=== PATIENT | male | born 1955 | race Caucasian/White ===

== ENCOUNTER 2021-03-30 14:14 | Emergency (ER) | payer MEDICAID ==
[~2021-03-30] VITALS: Ht 175.3 cm; Wt 67.0 kg
[2021-03-30] MEDS ORDERED: ketorolac tromethamine 15mg/ml inj. IM ONE (18:45)
[2021-03-30] MEDS ORDERED: IBUP-1984 PO (18:49)
[2021-03-30 18:59] VITALS: BP 146/88
== END 2021-03-30 19:49 | disposition home or self-care (01) ==
LOC: ER 14:16
DX: M25.562 Pain in left knee (principal)
CPT/HCPCS: 29530; 73564; 82948; 96372; 99283; J1885

== ENCOUNTER 2021-04-14 02:23 | Emergency (ER) | payer MEDICAID ==
[~2021-04-14] VITALS: Ht 170.2 cm; Wt 70.5 kg
[2021-04-14 04:20] VITALS: BP 128/58
== END 2021-04-14 04:22 | disposition home or self-care (01) ==
LOC: ER 02:23
DX: Z02.89 Encounter for other administrative examinations (principal); Z20.822 Contact with and (suspected) exposure to COVID-19; M25.562 Pain in left knee; F17.200 Nicotine dependence, unspecified, uncomplicated; Z98.890 Other specified postprocedural states
CPT/HCPCS: 36415; 99283; U0003; U0005

== ENCOUNTER 2021-08-11 16:54 | Emergency (ER) | payer MEDICAID ==
[~2021-08-11] VITALS: Ht 175.3 cm; Wt 71.5 kg
[2021-08-11 17:20] VITALS: BP 130/73
== END 2021-08-11 19:01 | disposition home or self-care (01) ==
LOC: ER 16:56
DX: S09.92XA Unspecified injury of nose, initial encounter (principal); S00.31XA Abrasion of nose, initial encounter; R42 Dizziness and giddiness; R51.9 Headache, unspecified; R11.0 Nausea; Z98.890 Other specified postprocedural states; Y08.89XA Assault by other specified means, initial encounter; Y93.89 Activity, other specified; Y92.89 Other specified places as the place of occurrence of the external cause; Y99.8 Other external cause status
CPT/HCPCS: 70450; 99284

== ENCOUNTER 2021-09-06 05:35 | Emergency (ER) | payer MEDICAID ==
[~2021-09-06] VITALS: Ht 175.3 cm; Wt 78.2 kg
[2021-09-06 05:54] VITALS: BP 140/87
[2021-09-06] MEDS ORDERED: normal saline 1000ML IV soln IV ONE (06:25)
[2021-09-06 07:30] LABS: CLARITY,URINE CLEAR (Clear); COLOR,URINE YELLOW (Yellow); GLUCOSE, URINE NEGATIVE (Neg); KETONES,URINE NEGATIVE (Neg); LEUKOCYTE ESTERASE ,URINE NEGATIVE (Neg); NITRITES, URINE NEGATIVE (Neg); OCCULT BLOOD,URINE NEGATIVE (Neg); PROTEIN,URINE NEGATIVE (Neg)
[2021-09-06 07:33] LABS: UA COLLECTION TYPE CLN CATCH MIDSTREAM
[2021-09-06 08:29] LABS: ALANINE AMINOTRANSFERASE 187 U/L (12-78); ALBUMIN 3.6 G/DL (3.4-5.0); ALBUMIN/GLOBULIN RATIO 0.7 (1.1-1.5); ALKALINE PHOSPHATASE 107 IU/L (46-116); ANION GAP 8 (8-16); ASPARTATE AMINO TRANSFERASE 219 U/L (10-37); BILIRUBIN,TOTAL 0.5 MG/DL (0.1-1.0); BLOOD UREA NITROGEN 13 MG/DL (7-18); CALCIUM 8.4 MG/DL (8.5-10.1); CHLORIDE 104 MMOL/L (99-107); CREATININE 0.65 MG/DL (0.60-1.10); MAGNESIUM 2.3 MG/DL (1.5-2.4); SODIUM 142 MMOL/L (135-145); TOTAL CARBON DIOXIDE 29.8 MMOL/L (24-32); TOTAL PROTEIN 8.9 G/DL (6.4-8.2); eGFR > 90 ML/MIN
[2021-09-06 08:33] LABS: BASOPHILS # (AUTO) 0.1 X10'3 (0-0.2); BASOPHILS % (AUTO) 1.3 % (0-1); EOSINOPHILS # (AUTO) 0.1 X10'3 (0-0.9); EOSINOPHILS % (AUTO) 1.7 % (0-6); HEMATOCRIT 41.9 % (42.0-52.0); HEMOGLOBIN 14.6 g/dl (14.0-17.9); LYMPHOCYTES % (AUTO) 41.6 % (21-51); MEAN CORPUSCULAR HEMOGLOBIN 37.1 PG (27.0-31.0); MEAN CORPUSCULAR HGB CONC 34.9 g/dL (33.0-36.5); MEAN CORPUSCULAR VOLUME 106.2 FL (78-98); MONOCYTES # (AUTO) 0.8 X10'3 (0-0.9); MONOCYTES % (AUTO) 10.8 % (2-12); NEUTROPHILS # (AUTO) 3.2 X10'3 (1.8-7.7); NEUTROPHILS % (AUTO) 44.6 % (42-75); PLATELET COUNT 204 X10'3 (140-440); RED BLOOD COUNT 3.95 X10'6 (4.70-6.10); RED CELL DISTRIBUTION WIDTH 14.1 % (11.5-14.5); WHITE BLOOD COUNT 7.2 X10'3 (4.5-11.0)
[2021-09-06 08:53] LABS: GLUCOSE 88 MG/DL (70-104)
[2021-09-06] MEDS ORDERED: ONDA4TAB12 PO (10:28)
== END 2021-09-06 10:34 | disposition home or self-care (01) ==
LOC: ER 05:36
DX: B34.9 Viral infection, unspecified (principal); Z20.822 Contact with and (suspected) exposure to COVID-19; R11.2 Nausea with vomiting, unspecified; R19.7 Diarrhea, unspecified; R06.02 Shortness of breath; R50.9 Fever, unspecified; R53.1 Weakness; R42 Dizziness and giddiness; R05.9 Cough, unspecified; Z98.890 Other specified postprocedural states
CPT/HCPCS: 36415; 71045; 80053; 81003; 83605; 83735; 84145; 85025; 87040; 87635; 93005; 99285; C9803

== ENCOUNTER 2022-03-04 03:28 | Emergency (ER) | payer MEDICAID ==
[~2022-03-04] VITALS: Ht 175.3 cm; Wt 73.6 kg
[~2022-03-04 03:28] MED LIST: ONDA4TAB12 PO
[2022-03-04 03:32] VITALS: BP 120/72
[2022-03-04] MEDS ORDERED: ketorolac trometh inj. 60 MG/2 ML VIAL IM ONE (05:05)
[2022-03-04] MEDS ORDERED: ACET650T48 PO (05:11)
[2022-03-04] MEDS ORDERED: IBUP-1985 PO (05:11)
== END 2022-03-04 05:47 | disposition home or self-care (01) ==
LOC: ER 03:29
DX: S89.91XA Unspecified injury of right lower leg, initial encounter (principal); X58.XXXA Exposure to other specified factors, initial encounter; Y93.89 Activity, other specified; Y92.89 Other specified places as the place of occurrence of the external cause; Y99.8 Other external cause status
CPT/HCPCS: 29505; 96372; 99284; J1885; 99283

== ENCOUNTER 2022-05-13 10:16 | Emergency (ER) | payer MEDICAID ==
[~2022-05-13] VITALS: Ht 175.3 cm; Wt 72.7 kg
[~2022-05-13 10:16] MED LIST changes: +ACET650T48 PO; +IBUP-1985 PO
[2022-05-13 10:54] VITALS: BP 146/80
[2022-05-13 11:35] LABS: CLARITY,URINE CLEAR (Clear); GLUCOSE, URINE NEGATIVE (Neg); KETONES,URINE NEGATIVE (Neg); LEUKOCYTE ESTERASE ,URINE NEGATIVE (Neg); NITRITES, URINE NEGATIVE (Neg); OCCULT BLOOD,URINE NEGATIVE (Neg); PROTEIN,URINE NEGATIVE (Neg); UROBILINOGEN,URINE 0.2 E.U/dL (0.2-1.0)
[2022-05-13 11:37] LABS: COLOR,URINE STRAW (Yellow); UA COLLECTION TYPE CLN CATCH MIDSTREAM
[2022-05-13 12:13] LABS: BASOPHILS # (AUTO) 0.2 X10'3 (0-0.2); EOSINOPHILS # (AUTO) 0.2 X10'3 (0-0.9); EOSINOPHILS % (AUTO) 2.1 % (0-6); LYMPHOCYTES # (AUTO) 2.8 X10'3 (1.1-4.8); NEUTROPHILS # (AUTO) 3.6 X10'3 (1.8-7.7)
[2022-05-13 12:15] LABS: HEMATOCRIT 40.3 % (42.0-52.0); HEMOGLOBIN 13.8 g/dl (14.0-17.9); LYMPHOCYTES % (AUTO) 36.2 % (21-51); MEAN CORPUSCULAR HEMOGLOBIN 34.9 PG (27.0-31.0); MEAN CORPUSCULAR HGB CONC 34.4 g/dL (33.0-36.5); MEAN CORPUSCULAR VOLUME 101.5 FL (78-98); MEAN PLATELET VOLUME 8.8 FL (7.4-10.4); NEUTROPHILS % (AUTO) 46.7 % (42-75); PLATELET COUNT 204 X10'3 (140-440); RED BLOOD COUNT 3.97 X10'6 (4.70-6.10); RED CELL DISTRIBUTION WIDTH 15.9 % (11.5-14.5); WHITE BLOOD COUNT 7.7 X10'3 (4.5-11.0)
[2022-05-13 12:39] LABS: ALANINE AMINOTRANSFERASE 87 U/L (12-78); ALBUMIN 3.7 G/DL (3.4-5.0); ALBUMIN/GLOBULIN RATIO 0.8 (1.1-1.5); ALKALINE PHOSPHATASE 107 IU/L (46-116); AMYLASE 44 U/L (25-115); ANION GAP 8 (8-16); ASPARTATE AMINO TRANSFERASE 161 U/L (10-37); BILIRUBIN,TOTAL 0.6 MG/DL (0.1-1.0); BLOOD UREA NITROGEN 9 MG/DL (7-18); BUN/CREATININE RATIO 11.7 (5.4-32.0); CALCIUM 8.6 MG/DL (8.5-10.1); CHLORIDE 107 MMOL/L (99-107); CREATININE 0.77 MG/DL (0.60-1.10); GLUCOSE 81 MG/DL (70-104); LIPASE 122 U/L (73-393); SODIUM 144 MMOL/L (135-145); TOTAL CARBON DIOXIDE 28.7 MMOL/L (24-32); TOTAL PROTEIN 8.2 G/DL (6.4-8.2); eGFR > 90 ML/MIN
== END 2022-05-13 14:15 | disposition left against medical advice (07) ==
LOC: ER 10:16
DX: R05.9 Cough, unspecified (principal); R11.0 Nausea; Z53.21 Procedure and treatment not carried out due to patient leaving prior to being seen by health care provider
CPT/HCPCS: 36415; 80053; 81003; 82150; 83690; 85025

== ENCOUNTER 2022-05-13 23:57 | Emergency (ER) | payer MEDICAID ==
[~2022-05-13] VITALS: Ht 175.3 cm; Wt 72.7 kg
[2022-05-14 00:24] VITALS: BP 123/61
== END 2022-05-14 11:24 | disposition left against medical advice (07) ==
LOC: ER 23:57
DX: T88.1XXA Other complications following immunization, not elsewhere classified, initial encounter (principal); Z20.822 Contact with and (suspected) exposure to COVID-19; M79.10 Myalgia, unspecified site; K59.00 Constipation, unspecified; R51.9 Headache, unspecified; D53.9 Nutritional anemia, unspecified; R74.8 Abnormal levels of other serum enzymes
CPT/HCPCS: 87635; 99283; C9803

== ENCOUNTER 2022-05-15 13:30 | Emergency (ER) | payer MEDICAID ==
[~2022-05-15] VITALS: Ht 175.3 cm; Wt 75.0 kg
[2022-05-15 13:44] VITALS: BP 127/76
[2022-05-15] MEDS ORDERED: ringers solution, lactated 1000ml IV soln IV ONE (15:00)
[2022-05-15 15:31] LABS: BASOPHILS # (AUTO) 0.1 X10'3 (0-0.2); BASOPHILS % (AUTO) 1.4 % (0-1); EOSINOPHILS % (AUTO) 0.5 % (0-6); HEMATOCRIT 37.4 % (42.0-52.0); HEMOGLOBIN 12.5 g/dl (14.0-17.9); LYMPHOCYTES % (AUTO) 33.4 % (21-51); MEAN CORPUSCULAR HEMOGLOBIN 34.1 PG (27.0-31.0); MEAN CORPUSCULAR HGB CONC 33.5 g/dL (33.0-36.5); MEAN CORPUSCULAR VOLUME 101.6 FL (78-98); MEAN PLATELET VOLUME 8.8 FL (7.4-10.4); MONOCYTES # (AUTO) 1.1 X10'3 (0-0.9); MONOCYTES % (AUTO) 12.5 % (2-12); NEUTROPHILS # (AUTO) 4.7 X10'3 (1.8-7.7); NEUTROPHILS % (AUTO) 52.2 % (42-75); PLATELET COUNT 194 X10'3 (140-440); RED BLOOD COUNT 3.68 X10'6 (4.70-6.10); RED CELL DISTRIBUTION WIDTH 16.1 % (11.5-14.5); WHITE BLOOD COUNT 9.1 X10'3 (4.5-11.0)
[2022-05-15 15:35] LABS: ALANINE AMINOTRANSFERASE 76 U/L (12-78); ALBUMIN 3.4 G/DL (3.4-5.0); ALBUMIN/GLOBULIN RATIO 0.8 (1.1-1.5); ALKALINE PHOSPHATASE 101 IU/L (46-116); ANION GAP 5 (8-16); ASPARTATE AMINO TRANSFERASE 146 U/L (10-37); BLOOD UREA NITROGEN 11 MG/DL (7-18); BUN/CREATININE RATIO 14.9 (5.4-32.0); CALCIUM 8.4 MG/DL (8.5-10.1); CHLORIDE 105 MMOL/L (99-107); CREATININE 0.74 MG/DL (0.60-1.10); ETHANOL 0.227 GM/DL (0.0-0.010); GLUCOSE 86 MG/DL (70-104); POTASSIUM 3.6 MMOL/L (3.5-5.1); SODIUM 136 MMOL/L (135-145); TOTAL CARBON DIOXIDE 26.5 MMOL/L (24-32); TOTAL PROTEIN 7.5 G/DL (6.4-8.2); eGFR > 90 ML/MIN
[2022-05-15 15:44] LABS: CLARITY,URINE CLEAR (Clear); GLUCOSE, URINE NEGATIVE (Neg); KETONES,URINE NEGATIVE (Neg); LEUKOCYTE ESTERASE ,URINE NEGATIVE (Neg); NITRITES, URINE NEGATIVE (Neg); OCCULT BLOOD,URINE NEGATIVE (Neg); PH,URINE 6.5 (4.8-8.0); PROTEIN,URINE NEGATIVE (Neg); UROBILINOGEN,URINE 0.2 E.U/dL (0.2-1.0)
[2022-05-15 15:46] LABS: COLOR,URINE STRAW (Yellow); UA COLLECTION TYPE URINAL
[2022-05-15] MEDS ORDERED: ibuprofen 200mg tablet PO ONE (15:55)
[2022-05-15 15:59] LABS: URINE AMPHETAMINE SCREEN NEGATIVE (Neg); URINE BARBITUATE SCREEN NEGATIVE (Neg); URINE BENZODIAZEPINES SCREEN NEGATIVE (Neg); URINE CANNABINOID SCREEN NEGATIVE (Neg); URINE COCAINE SCREEN NEGATIVE (Neg); URINE METHADONE SCREEN NEGATIVE (Neg); URINE OPIATE SCREEN NEGATIVE (Neg); URINE PHENCYCLIDINE SCREEN NEGATIVE (Neg)
--- NOTE | 2022-05-15 16:05 | NUR ---
po med given
--- NOTE | 2022-05-15 16:27 | NUR ---
iv dc'd pt being discharged.
== END 2022-05-15 16:41 | disposition home or self-care (01) ==
LOC: ER 13:30
DX: F10.10 Alcohol abuse, uncomplicated (principal); H57.89 Other specified disorders of eye and adnexa; Y90.9 Presence of alcohol in blood, level not specified
CPT/HCPCS: 36415; 70450; 80053; 80305; 80320; 81003; 85025; 96360; 99284; J7120

== ENCOUNTER 2022-06-01 21:30 | Emergency (ER) | payer MEDICARE, MEDICAID ==
[~2022-06-01] VITALS: Ht 175.3 cm; Wt 74.5 kg
[2022-06-01] MEDS ORDERED: ketorolac trometh inj. 60 MG/2 ML VIAL IM ONE (22:50)
[2022-06-01 22:56] VITALS: BP 121/67
--- NOTE | 2022-06-01 23:51 | NUR ---
celia bandage applied to right foot as ordered. deng well
== END 2022-06-02 01:18 | disposition home or self-care (01) ==
LOC: ER 21:30
DX: M79.671 Pain in right foot (principal)
CPT/HCPCS: 73630; 96372; 99283; J1885

== ENCOUNTER 2022-07-11 14:47 | Emergency (ER) | payer MEDICARE, MEDICAID ==
[~2022-07-11] VITALS: Ht 175.3 cm; Wt 69.7 kg
[2022-07-11 15:18] VITALS: BP 98/61
== END 2022-07-11 19:56 | disposition left against medical advice (07) ==
LOC: ER 14:48
DX: M25.551 Pain in right hip (principal); Z53.21 Procedure and treatment not carried out due to patient leaving prior to being seen by health care provider

== ENCOUNTER 2022-07-21 06:38 | Emergency (ER) | payer MEDICARE, MEDICAID ==
[~2022-07-21] VITALS: Ht 175.3 cm; Wt 70.0 kg
[2022-07-21 07:56] LABS: BASOPHILS # (AUTO) 0.1 X10'3 (0-0.2); BASOPHILS % (AUTO) 0.9 % (0-1); EOSINOPHILS # (AUTO) 0.1 X10'3 (0-0.9); EOSINOPHILS % (AUTO) 0.7 % (0-6); HEMATOCRIT 38.6 % (42.0-52.0); HEMOGLOBIN 12.8 g/dl (14.0-17.9); LYMPHOCYTES # (AUTO) 2.5 X10'3 (1.1-4.8); LYMPHOCYTES % (AUTO) 26.3 % (21-51); MEAN CORPUSCULAR HEMOGLOBIN 34.8 PG (27.0-31.0); MEAN CORPUSCULAR HGB CONC 33.2 g/dL (33.0-36.5); MEAN CORPUSCULAR VOLUME 104.8 FL (78-98); MEAN PLATELET VOLUME 8.1 FL (7.4-10.4); MONOCYTES % (AUTO) 10.6 % (2-12); NEUTROPHILS # (AUTO) 5.9 X10'3 (1.8-7.7); NEUTROPHILS % (AUTO) 61.5 % (42-75); PLATELET COUNT 264 X10'3 (140-440); RED BLOOD COUNT 3.68 X10'6 (4.70-6.10); RED CELL DISTRIBUTION WIDTH 15.9 % (11.5-14.5); WHITE BLOOD COUNT 9.5 X10'3 (4.5-11.0)
[2022-07-21 08:10] LABS: ALANINE AMINOTRANSFERASE 58 U/L (12-78); ALBUMIN 3.5 G/DL (3.4-5.0); ALBUMIN/GLOBULIN RATIO 0.8 (1.1-1.5); ALKALINE PHOSPHATASE 115 IU/L (46-116); ANION GAP 16 (8-16); ASPARTATE AMINO TRANSFERASE 123 U/L (10-37); BILIRUBIN,TOTAL 0.5 MG/DL (0.1-1.0); BLOOD UREA NITROGEN 11 MG/DL (7-18); BUN/CREATININE RATIO 15.1 (5.4-32.0); CALCIUM 8.7 MG/DL (8.5-10.1); CHLORIDE 101 MMOL/L (99-107); CREATININE 0.73 MG/DL (0.60-1.10); GLUCOSE 91 MG/DL (70-104); POTASSIUM 3.7 MMOL/L (3.5-5.1); SODIUM 143 MMOL/L (135-145); TOTAL CARBON DIOXIDE 26.4 MMOL/L (24-32); TOTAL PROTEIN 8.1 G/DL (6.4-8.2); eGFR > 90 ML/MIN
[2022-07-21 08:36] LABS: CLARITY,URINE CLEAR (Clear); COLOR,URINE YELLOW (Yellow); GLUCOSE, URINE NEGATIVE (Neg); KETONES,URINE NEGATIVE (Neg); LEUKOCYTE ESTERASE ,URINE NEGATIVE (Neg); NITRITES, URINE NEGATIVE (Neg); OCCULT BLOOD,URINE NEGATIVE (Neg); PH,URINE 6.5 (4.8-8.0); PROTEIN,URINE NEGATIVE (Neg)
[2022-07-21 08:49] LABS: UA COLLECTION TYPE VOIDED
[2022-07-21 09:44] VITALS: BP 122/68
== END 2022-07-21 09:46 | disposition home or self-care (01) ==
LOC: ER 06:39
DX: B34.9 Viral infection, unspecified (principal); Z20.822 Contact with and (suspected) exposure to COVID-19; F10.10 Alcohol abuse, uncomplicated; Y90.9 Presence of alcohol in blood, level not specified; Z79.899 Other long term (current) drug therapy
CPT/HCPCS: 36415; 71045; 80053; 81003; 84145; 84484; 85025; 87502; 87503; 87811; 99284

== ENCOUNTER 2022-07-25 22:27 | Emergency (ER) | payer MEDICARE, MEDICAID ==
[~2022-07-25] VITALS: Ht 175.3 cm; Wt 76.4 kg
[2022-07-25 22:41] VITALS: BP 151/70
[2022-07-26 03:22] LABS: BASOPHILS # (AUTO) 0.1 X10'3 (0-0.2); BASOPHILS % (AUTO) 1.8 % (0-1); EOSINOPHILS # (AUTO) 0.1 X10'3 (0-0.9); EOSINOPHILS % (AUTO) 1.9 % (0-6); HEMATOCRIT 36.4 % (42.0-52.0); HEMOGLOBIN 12.3 g/dl (14.0-17.9); LYMPHOCYTES # (AUTO) 2.4 X10'3 (1.1-4.8); MEAN CORPUSCULAR HEMOGLOBIN 34.9 PG (27.0-31.0); MEAN CORPUSCULAR HGB CONC 33.8 g/dL (33.0-36.5); MEAN CORPUSCULAR VOLUME 103.1 FL (78-98); MEAN PLATELET VOLUME 8.9 FL (7.4-10.4); MONOCYTES # (AUTO) 0.9 X10'3 (0-0.9); MONOCYTES % (AUTO) 11.5 % (2-12); NEUTROPHILS % (AUTO) 52.8 % (42-75); PLATELET COUNT 205 X10'3 (140-440); RED BLOOD COUNT 3.53 X10'6 (4.70-6.10); RED CELL DISTRIBUTION WIDTH 15.2 % (11.5-14.5); WHITE BLOOD COUNT 7.6 X10'3 (4.5-11.0)
[2022-07-26 03:37] LABS: ALANINE AMINOTRANSFERASE 86 U/L (12-78); ALBUMIN 3.4 G/DL (3.4-5.0); ALBUMIN/GLOBULIN RATIO 0.8 (1.1-1.5); ALKALINE PHOSPHATASE 123 IU/L (46-116); ANION GAP 10 (8-16); ASPARTATE AMINO TRANSFERASE 182 U/L (10-37); BILIRUBIN,TOTAL 0.7 MG/DL (0.1-1.0); BLOOD UREA NITROGEN 11 MG/DL (7-18); BUN/CREATININE RATIO 12.5 (5.4-32.0); CALCIUM 8.9 MG/DL (8.5-10.1); CHLORIDE 104 MMOL/L (99-107); CREATININE 0.88 MG/DL (0.60-1.10); GLUCOSE 104 MG/DL (70-104); POTASSIUM 3.6 MMOL/L (3.5-5.1); SODIUM 140 MMOL/L (135-145); TOTAL PROTEIN 7.9 G/DL (6.4-8.2); eGFR 87 ML/MIN
[2022-07-26 03:45] LABS: LIPASE 248 U/L (73-393)
[2022-07-26] MEDS: acetaminophen 325mg tablet PO ONE (04:15)
== END 2022-07-26 04:46 | disposition home or self-care (01) ==
LOC: ER 22:28
DX: R07.89 Other chest pain (principal); R10.84 Generalized abdominal pain; F17.200 Nicotine dependence, unspecified, uncomplicated; Z72.89 Other problems related to lifestyle; Z98.890 Other specified postprocedural states; Z79.899 Other long term (current) drug therapy
CPT/HCPCS: 36415; 71045; 80053; 83690; 83880; 84484; 85025; 85610; 93005; 99285

== ENCOUNTER 2022-08-18 00:16 | Emergency (ER) | payer MEDICARE, MEDICAID ==
[~2022-08-18] VITALS: Ht 176.5 cm; Wt 73.6 kg
[2022-08-18 00:24] VITALS: BP 112/72
[2022-08-18] MEDS ORDERED: HYDROcodone/acetaminophen 10/325mg tab PO ONE (08:05)
[2022-08-18] MEDS ORDERED: naproxen 500mg tablet PO ONE (08:05)
[2022-08-18] MEDS ORDERED: NAPR-56 PO (10:24)
[2022-08-18] MEDS ORDERED: HYDR-3965 PO (10:24)
== END 2022-08-18 10:48 | disposition home or self-care (01) ==
LOC: ER 00:17
DX: S22.41XA Multiple fractures of ribs, right side, initial encounter for closed fracture (principal); W19.XXXA Unspecified fall, initial encounter; Y93.89 Activity, other specified; Y92.89 Other specified places as the place of occurrence of the external cause; Y99.8 Other external cause status
CPT/HCPCS: 71046; 71250; 72128; 72131; 99284

== ENCOUNTER 2022-08-27 18:10 | Emergency (ER) | payer MEDICARE, MEDICAID ==
[~2022-08-27] VITALS: Ht 175.3 cm; Wt 77.2 kg
[~2022-08-27 18:10] MED LIST changes: +HYDR-3965 PO; +NAPR-56 PO
[2022-08-27 18:25] VITALS: BP 137/74
[2022-08-27] MEDS ORDERED: HYDROcodone/acetaminophen 10/325mg tab PO ONE (20:20)
[2022-08-27] MEDS ORDERED: ondansetron 4mg rapidly disintigrating tab PO ONE (20:35)
[2022-08-27 20:41] LABS: BASOPHILS # (AUTO) 0.1 X10'3 (0-0.2); BASOPHILS % (AUTO) 1.2 % (0-1); EOSINOPHILS # (AUTO) 0.1 X10'3 (0-0.9); EOSINOPHILS % (AUTO) 1.4 % (0-6); HEMATOCRIT 40.3 % (42.0-52.0); HEMOGLOBIN 13.8 g/dl (14.0-17.9); LYMPHOCYTES # (AUTO) 2.8 X10'3 (1.1-4.8); LYMPHOCYTES % (AUTO) 31.8 % (21-51); MEAN CORPUSCULAR HEMOGLOBIN 35.2 PG (27.0-31.0); MEAN CORPUSCULAR HGB CONC 34.2 g/dL (33.0-36.5); MEAN CORPUSCULAR VOLUME 103.1 FL (78-98); MEAN PLATELET VOLUME 8.8 FL (7.4-10.4); MONOCYTES # (AUTO) 0.9 X10'3 (0-0.9); MONOCYTES % (AUTO) 10.3 % (2-12); NEUTROPHILS # (AUTO) 4.9 X10'3 (1.8-7.7); NEUTROPHILS % (AUTO) 55.3 % (42-75); PLATELET COUNT 232 X10'3 (140-440); RED BLOOD COUNT 3.91 X10'6 (4.70-6.10); RED CELL DISTRIBUTION WIDTH 16.3 % (11.5-14.5); WHITE BLOOD COUNT 8.9 X10'3 (4.5-11.0)
--- NOTE | 2022-08-27 20:56 | NUR ---
Incentive spirometer provided to patient. Pt provided return demonstration and verbalized understanding.
[2022-08-27 21:42] LABS: ALANINE AMINOTRANSFERASE 82 U/L (12-78); ALBUMIN 3.8 G/DL (3.4-5.0); ALBUMIN/GLOBULIN RATIO 0.8 (1.1-1.5); ALKALINE PHOSPHATASE 142 IU/L (46-116); ANION GAP 12 (8-16); ASPARTATE AMINO TRANSFERASE 157 U/L (10-37); BILIRUBIN,TOTAL 0.6 MG/DL (0.1-1.0); BLOOD UREA NITROGEN 12 MG/DL (7-18); BUN/CREATININE RATIO 16.2 (5.4-32.0); CALCIUM 8.9 MG/DL (8.5-10.1); CHLORIDE 101 MMOL/L (99-107); CREATININE 0.74 MG/DL (0.60-1.10); GLUCOSE 98 MG/DL (70-104); POTASSIUM 3.8 MMOL/L (3.5-5.1); SODIUM 138 MMOL/L (135-145); TOTAL CARBON DIOXIDE 24.6 MMOL/L (24-32); TOTAL PROTEIN 8.4 G/DL (6.4-8.2); eGFR > 90 ML/MIN
--- NOTE | 2022-08-27 21:50 | NUR ---
Pt able to tolerate PO. He ate crackers and drank milk without episode of emesis. He states that his pain has improved from a 10/10 to a 5/10.
[2022-08-27] MEDS ORDERED: HYDR-3965 PO (21:56)
== END 2022-08-27 22:13 | disposition home or self-care (01) ==
LOC: ER 18:11
DX: S22.41XA Multiple fractures of ribs, right side, initial encounter for closed fracture (principal); J98.11 Atelectasis; X58.XXXA Exposure to other specified factors, initial encounter; Y93.89 Activity, other specified; Y92.89 Other specified places as the place of occurrence of the external cause; Y99.8 Other external cause status
CPT/HCPCS: 36415; 71101; 80053; 85025; 99284

== ENCOUNTER 2022-09-04 16:11 | Emergency (ER) | payer MEDICARE, MEDICAID ==
[~2022-09-04] VITALS: Ht 175.3 cm; Wt 70.0 kg
[2022-09-04 16:22] VITALS: BP 111/59
[2022-09-04] MEDS ORDERED: morphine 4 MG/ML inj SYRINge IM ONE (17:50)
[2022-09-04] MEDS ORDERED: ondansetron 4mg rapidly disintigrating tab PO ONE (17:50)
[2022-09-04] MEDS ORDERED: OXYC-145 PO (18:13)
== END 2022-09-04 19:19 | disposition home or self-care (01) ==
LOC: ER 16:12
DX: R07.81 Pleurodynia (principal); Z98.890 Other specified postprocedural states; Z72.89 Other problems related to lifestyle; Z79.899 Other long term (current) drug therapy
CPT/HCPCS: 71101; 96372; 99283; J2270

== ENCOUNTER 2022-09-26 17:32 | Emergency (ER) | payer MEDICARE, MEDICAID ==
[~2022-09-26] VITALS: Ht 176.5 cm; Wt 73.2 kg
[~2022-09-26 17:32] MED LIST changes: -HYDR-3965 PO; -NAPR-56 PO; +OXYC-145 PO
[2022-09-26 18:05] VITALS: BP 114/64
[2022-09-26] MEDS ORDERED: ketorolac trometh inj. 60 MG/2 ML VIAL IM ONE (18:50)
[2022-09-26] MEDS ORDERED: IBUP-1986 PO (18:51)
[2022-09-26] MEDS ORDERED: ondansetron 4mg rapidly disintigrating tab PO ONE (19:30)
== END 2022-09-26 19:50 | disposition home or self-care (01) ==
LOC: ER 17:33
DX: K59.00 Constipation, unspecified (principal); G89.29 Other chronic pain; R07.81 Pleurodynia; Z98.890 Other specified postprocedural states
CPT/HCPCS: 96372; 99283; J1885

== ENCOUNTER 2022-09-27 21:03 | Emergency (ER) | payer MEDICARE, MEDICAID ==
[~2022-09-27] VITALS: Ht 175.3 cm; Wt 61.8 kg
[~2022-09-27 21:03] MED LIST changes: +IBUP-1986 PO
[2022-09-27 21:18] VITALS: BP 142/87
[2022-09-27] MEDS ORDERED: ketorolac trometh. 30mg/ml inj. IM ONE (22:55)
== END 2022-09-27 23:44 | disposition home or self-care (01) ==
LOC: ER 21:05
DX: S83.92XA Sprain of unspecified site of left knee, initial encounter (principal); Z90.49 Acquired absence of other specified parts of digestive tract; Z79.899 Other long term (current) drug therapy; Z79.1 Long term (current) use of non-steroidal anti-inflammatories (NSAID); Z79.2 Long term (current) use of antibiotics; X58.XXXA Exposure to other specified factors, initial encounter; Y93.89 Activity, other specified; Y92.89 Other specified places as the place of occurrence of the external cause; Y99.8 Other external cause status
CPT/HCPCS: 29530; 96372; 99283; J1885

== ENCOUNTER 2022-09-29 20:24 | Emergency (ER) | payer MEDICARE, MEDICAID ==
[~2022-09-29] VITALS: Ht 175.3 cm; Wt 72.3 kg
[2022-09-29 20:55] VITALS: BP 133/77
[2022-09-29] MEDS ORDERED: ibuprofen 200mg tablet PO ONE (22:30)
[2022-09-29] MEDS ORDERED: IBUP-1984 PO (22:43)
== END 2022-09-29 22:54 | disposition home or self-care (01) ==
LOC: ER 20:34
DX: S09.90XA Unspecified injury of head, initial encounter (principal); M25.511 Pain in right shoulder; Z98.890 Other specified postprocedural states; W19.XXXA Unspecified fall, initial encounter; Y93.89 Activity, other specified; Y92.89 Other specified places as the place of occurrence of the external cause; Y99.8 Other external cause status
CPT/HCPCS: 70450; 73030; 99284; A4565

== ENCOUNTER 2022-10-08 11:30 | Emergency (ER) | payer MEDICARE, MEDICAID ==
[~2022-10-08] VITALS: Ht 176.5 cm; Wt 71.8 kg
[2022-10-08 11:53] VITALS: BP 126/69
[2022-10-08] MEDS ORDERED: IBUP-1984 PO (15:34)
[2022-10-08] MEDS ORDERED: HYDROcodone/acetaminophen 5mg/325mg tablet PO ONE (15:35)
[2022-10-08] MEDS ORDERED: mupirocin 2% ointment 22GM TP STA (15:35)
== END 2022-10-08 15:54 | disposition home or self-care (01) ==
LOC: ER 11:31
DX: L73.9 Follicular disorder, unspecified (principal); M25.562 Pain in left knee; Z98.890 Other specified postprocedural states; Z72.89 Other problems related to lifestyle; Z79.899 Other long term (current) drug therapy
CPT/HCPCS: 99284; A6449

== ENCOUNTER 2022-10-09 22:34 | Emergency (ER) | payer MEDICARE, MEDICAID ==
[~2022-10-09] VITALS: Ht 177.8 cm; Wt 75.0 kg
[~2022-10-09 22:34] MED LIST changes: +IBUP-1984 PO
[2022-10-09 22:46] VITALS: BP 157/93
[2022-10-10] MEDS ORDERED: HYDROcodone/acetaminophen 5mg/325mg tablet PO ONE (04:15)
== END 2022-10-10 04:58 | disposition home or self-care (01) ==
LOC: ER 22:34
DX: R07.89 Other chest pain (principal); R07.81 Pleurodynia; M25.562 Pain in left knee; F17.200 Nicotine dependence, unspecified, uncomplicated; Z56.0 Unemployment, unspecified; Z98.890 Other specified postprocedural states; Z79.899 Other long term (current) drug therapy
CPT/HCPCS: 99283

== ENCOUNTER 2022-10-12 21:56 | Emergency (ER) | payer MEDICARE, MEDICAID ==
[~2022-10-12] VITALS: Ht 175.3 cm; Wt 70.0 kg
[2022-10-12 22:00] VITALS: BP 145/73
[2022-10-13] MEDS ORDERED: bacitracin 15gm ointment TP ONE (00:35)
[2022-10-13] MEDS ORDERED: ibuprofen tablet 400 MG TABLET PO ONE (00:35)
== END 2022-10-13 00:46 | disposition home or self-care (01) ==
LOC: ER 21:57
DX: S80.212A Abrasion, left knee, initial encounter (principal); R07.81 Pleurodynia; R51.9 Headache, unspecified; Z98.890 Other specified postprocedural states; Z56.0 Unemployment, unspecified; X58.XXXA Exposure to other specified factors, initial encounter; Y93.89 Activity, other specified; Y92.89 Other specified places as the place of occurrence of the external cause; Y99.8 Other external cause status
CPT/HCPCS: 99284

== ENCOUNTER 2022-10-13 22:39 | Emergency (ER) | payer MEDICARE, MEDICAID ==
[~2022-10-13] VITALS: Ht 175.3 cm; Wt 75.0 kg
[2022-10-13 22:46] VITALS: BP 136/82
== END 2022-10-14 00:19 | disposition home or self-care (01) ==
LOC: ER 22:39
DX: R07.81 Pleurodynia (principal); Z87.81 Personal history of (healed) traumatic fracture; Z56.0 Unemployment, unspecified; Z79.899 Other long term (current) drug therapy; Z90.49 Acquired absence of other specified parts of digestive tract
CPT/HCPCS: 71045; 99284

== ENCOUNTER 2022-12-23 16:20 | Emergency (ER) | payer MEDICARE, MEDICAID ==
[~2022-12-23] VITALS: Ht 175.3 cm; Wt 74.0 kg
[~2022-12-23 16:20] MED LIST changes: -IBUP-1984 PO
[2022-12-23 19:14] VITALS: BP 132/77
== END 2022-12-23 19:09 | disposition home or self-care (01) ==
LOC: ER 16:21
DX: M79.644 Pain in right finger(s) (principal); F17.200 Nicotine dependence, unspecified, uncomplicated; Z56.0 Unemployment, unspecified; X50.0XXA Overexertion from strenuous movement or load, initial encounter; Y93.89 Activity, other specified; Y92.89 Other specified places as the place of occurrence of the external cause; Y99.8 Other external cause status
CPT/HCPCS: 29125; 99284

== ENCOUNTER 2024-01-31 03:55 | Emergency (ER) | payer MEDICAID, MEDICARE ==
[~2024-01-31] VITALS: Ht 175.3 cm; Wt 77.3 kg
[~2024-01-31 03:55] MED LIST changes: +NAPR-1154 PO
[2024-01-31 04:34] VITALS: TEMP 98.9
[2024-01-31 05:35] VITALS: BP 120/64; PULSE 65; RESP 15; O2SAT 95
[2024-01-31 05:37] LABS: BASOPHILS # (AUTO) 0.1 X10'3 (0-0.2); EOSINOPHILS # (AUTO) 0.2 X10'3 (0-0.9); MEAN PLATELET VOLUME 9.3 FL (7.4-10.4); MONOCYTES # (AUTO) 0.5 X10'3 (0-0.9); WHITE BLOOD COUNT 5.9 X10'3 (4.5-11.0)
[2024-01-31 05:40] LABS: BASOPHILS % (AUTO) 1.5 % (0-1); EOSINOPHILS % (AUTO) 3.6 % (0-6); HEMATOCRIT 31.4 % (42.0-52.0); HEMOGLOBIN 10.3 g/dl (14.0-17.9); LYMPHOCYTES # (AUTO) 2.1 X10'3 (1.1-4.8); LYMPHOCYTES % (AUTO) 36.2 % (21-51); MEAN CORPUSCULAR HEMOGLOBIN 31.6 PG (27.0-31.0); MEAN CORPUSCULAR HGB CONC 32.7 g/dL (33.0-36.5); MEAN CORPUSCULAR VOLUME 96.7 FL (78-98); MONOCYTES % (AUTO) 8.8 % (2-12); NEUTROPHILS # (AUTO) 2.9 X10'3 (1.8-7.7); NEUTROPHILS % (AUTO) 49.9 % (42-75); PLATELET COUNT 169 X10'3 (140-440); RED BLOOD COUNT 3.24 X10'6 (4.70-6.10); RED CELL DISTRIBUTION WIDTH 17.8 % (11.5-14.5)
[2024-01-31 05:54] LABS: ALANINE AMINOTRANSFERASE 89 U/L (12-78); ALBUMIN 2.9 G/DL (3.4-5.0); ALBUMIN/GLOBULIN RATIO 0.8 (1.1-1.5); ALKALINE PHOSPHATASE 176 IU/L (46-116); ANION GAP 6 (8-16); ASPARTATE AMINO TRANSFERASE 219 U/L (10-37); BLOOD UREA NITROGEN 10 MG/DL (7-18); BUN/CREATININE RATIO 11.2 (10.0-20.0); CALCIUM 7.7 MG/DL (8.5-10.1); CHLORIDE 108 MMOL/L (99-107); CREATININE 0.89 MG/DL (0.60-1.10); GLUCOSE 91 MG/DL (70-104); POTASSIUM 3.2 MMOL/L (3.5-5.1); SODIUM 142 MMOL/L (135-145); TOTAL CARBON DIOXIDE 28.2 MMOL/L (24-32); TOTAL PROTEIN 6.6 G/DL (6.4-8.2); eCRCL 82 ML/MIN; eGFR 86 ML/MIN
[2024-01-31 05:56] LABS: LACTIC SEPSIS 1.4 MMOL/L (0.4-2.0)
[2024-01-31 05:57] LABS: ANISOCYTOSIS 1+; PLATELET ESTIMATE NORMAL
[2024-01-31 05:58] LABS: ACANTHOCYTES FEW; TARGET CELLS 1+; TEAR DROP CELLS FEW
[2024-01-31] MEDS: potassium Cl 20 mEq SR tablet PO STA (06:24)
== END 2024-01-31 06:39 | disposition home or self-care (01) ==
LOC: ER 03:56
DX: R60.0 Localized edema (principal); F10.90 Alcohol use, unspecified, uncomplicated; Z56.0 Unemployment, unspecified; Z98.890 Other specified postprocedural states; Z85.9 Personal history of malignant neoplasm, unspecified; Z79.1 Long term (current) use of non-steroidal anti-inflammatories (NSAID)
CPT/HCPCS: 36415; 71045; 80053; 82140; 83605; 83735; 84145; 84484; 85008; 85025; 87040; 93005; 99285

== ENCOUNTER 2024-02-02 12:58 | Emergency (ER) | payer MEDICARE ==
[~2024-02-02] VITALS: Ht 175.3 cm; Wt 77.3 kg
[2024-02-02 13:24] VITALS: TEMP 97.6
[2024-02-02 13:36] LABS: BASOPHILS # (AUTO) 0.1 X10'3 (0-0.2); EOSINOPHILS # (AUTO) 0.1 X10'3 (0-0.9); EOSINOPHILS % (AUTO) 2.3 % (0-6); HEMATOCRIT 32.5 % (42.0-52.0); HEMOGLOBIN 10.6 g/dl (14.0-17.9); LYMPHOCYTES # (AUTO) 1.2 X10'3 (1.1-4.8); LYMPHOCYTES % (AUTO) 24.6 % (21-51); MEAN CORPUSCULAR HEMOGLOBIN 31.5 PG (27.0-31.0); MEAN CORPUSCULAR HGB CONC 32.5 g/dL (33.0-36.5); MEAN CORPUSCULAR VOLUME 96.9 FL (78-98); MEAN PLATELET VOLUME 9.4 FL (7.4-10.4); MONOCYTES # (AUTO) 0.4 X10'3 (0-0.9); MONOCYTES % (AUTO) 7.8 % (2-12); NEUTROPHILS # (AUTO) 3.2 X10'3 (1.8-7.7); NEUTROPHILS % (AUTO) 63.3 % (42-75); PLATELET COUNT 149 X10'3 (140-440); RED BLOOD COUNT 3.35 X10'6 (4.70-6.10); RED CELL DISTRIBUTION WIDTH 17.7 % (11.5-14.5)
[2024-02-02 14:01] LABS: ANION GAP 9 (8-16); BLOOD UREA NITROGEN 13 MG/DL (7-18); BUN/CREATININE RATIO 19.1 (10.0-20.0); CALCIUM 7.8 MG/DL (8.5-10.1); CHLORIDE 105 MMOL/L (99-107); CREATININE 0.68 MG/DL (0.60-1.10); GLUCOSE 77 MG/DL (70-104); LIPASE 83 U/L (16-77); POTASSIUM 3.1 MMOL/L (3.5-5.1); PRO BRAIN NATRIURETIC PEPTIDE 162 PG/ML (0-125); SODIUM 140 MMOL/L (135-145); TOTAL CARBON DIOXIDE 26.2 MMOL/L (24-32); eCRCL 107 ML/MIN; eGFR > 90 ML/MIN
[2024-02-02 14:12] VITALS: BP 127/70; PULSE 63; RESP 15; O2SAT 97
[2024-02-02] MEDS ORDERED: DOXY150T3 PO (15:01)
[2024-02-02 15:56] LABS: BILIRUBIN,URINE NEGATIVE (Neg); CLARITY,URINE CLEAR (Clear); COLOR,URINE YELLOW (Yellow); GLUCOSE, URINE NEGATIVE (Neg); KETONES,URINE NEGATIVE (Neg); LEUKOCYTE ESTERASE ,URINE NEGATIVE (Neg); NITRITES, URINE NEGATIVE (Neg); OCCULT BLOOD,URINE NEGATIVE (Neg); PROTEIN,URINE NEGATIVE (Neg)
[2024-02-02 15:58] LABS: UA COLLECTION TYPE VOIDED
[2024-02-03] MEDS ORDERED: FURO-150 PO (20:10)
[2024-02-03] MEDS ORDERED: LACT10PA5 PO (20:10)
== END 2024-02-02 16:08 | disposition home or self-care (01) ==
LOC: ER 12:58
DX: L03.115 Cellulitis of right lower limb (principal); Z79.1 Long term (current) use of non-steroidal anti-inflammatories (NSAID); Z85.89 Personal history of malignant neoplasm of other organs and systems; F10.90 Alcohol use, unspecified, uncomplicated; Z56.0 Unemployment, unspecified
CPT/HCPCS: 36415; 71045; 80048; 81003; 83690; 83880; 84484; 85025; 93005; 93971; 99285

== ENCOUNTER 2024-02-03 18:14 | Emergency (ER) | payer MEDICARE ==
[~2024-02-03] VITALS: Ht 175.3 cm; Wt 79.5 kg
[~2024-02-03 18:14] MED LIST changes: +DOXY150T3 PO
[2024-02-03] MEDS: ondansetron 4mg rapidly disintigrating tab PO ONE (19:09)
[2024-02-03] MEDS: ketorolac tromethamine 15mg/ml inj. IM ONE (19:10)
[2024-02-03 19:29] LABS: BASOPHILS # (AUTO) 0.1 X10'3 (0-0.2); EOSINOPHILS # (AUTO) 0.1 X10'3 (0-0.9); EOSINOPHILS % (AUTO) 1.8 % (0-6); HEMOGLOBIN 9.9 g/dl (14.0-17.9); LYMPHOCYTES # (AUTO) 1.7 X10'3 (1.1-4.8); LYMPHOCYTES % (AUTO) 33.1 % (21-51); MEAN CORPUSCULAR HEMOGLOBIN 32.4 PG (27.0-31.0); MEAN CORPUSCULAR HGB CONC 34.1 g/dL (33.0-36.5); MEAN CORPUSCULAR VOLUME 94.8 FL (78-98); MEAN PLATELET VOLUME 9.5 FL (7.4-10.4); MONOCYTES # (AUTO) 0.7 X10'3 (0-0.9); MONOCYTES % (AUTO) 13.8 % (2-12); NEUTROPHILS # (AUTO) 2.6 X10'3 (1.8-7.7); NEUTROPHILS % (AUTO) 50.3 % (42-75); PLATELET COUNT 124 X10'3 (140-440); RED BLOOD COUNT 3.06 X10'6 (4.70-6.10); RED CELL DISTRIBUTION WIDTH 17.9 % (11.5-14.5); WHITE BLOOD COUNT 5.2 X10'3 (4.5-11.0)
[2024-02-03 19:54] LABS: ALANINE AMINOTRANSFERASE 101 U/L (12-78); ALBUMIN 2.8 G/DL (3.4-5.0); ALBUMIN/GLOBULIN RATIO 0.7 (1.1-1.5); ALKALINE PHOSPHATASE 165 IU/L (46-116); ANION GAP 9 (8-16); ASPARTATE AMINO TRANSFERASE 295 U/L (10-37); BILIRUBIN,TOTAL 0.8 MG/DL (0.1-1.0); BLOOD UREA NITROGEN 13 MG/DL (7-18); BUN/CREATININE RATIO 13.7 (10.0-20.0); CALCIUM 7.3 MG/DL (8.5-10.1); CHLORIDE 103 MMOL/L (99-107); CREATININE 0.95 MG/DL (0.60-1.10); GLUCOSE 127 MG/DL (70-104); POTASSIUM 3.2 MMOL/L (3.5-5.1); SODIUM 138 MMOL/L (135-145); TOTAL CARBON DIOXIDE 25.8 MMOL/L (24-32); TOTAL PROTEIN 6.6 G/DL (6.4-8.2); eCRCL 76 ML/MIN; eGFR 79 ML/MIN
[2024-02-03] MEDS ORDERED: LACT10PA5 PO (20:10)
[2024-02-03] MEDS ORDERED: FURO-150 PO (20:10)
[2024-02-03] MEDS: potassium Cl 20 mEq SR tablet PO STA (20:28)
[2024-02-03 20:59] VITALS: BP 103/55; PULSE 72; RESP 16; TEMP 98.8; O2SAT 98
== END 2024-02-03 21:01 | disposition home or self-care (01) ==
LOC: ER 18:15
DX: R60.0 Localized edema (principal); K59.00 Constipation, unspecified; R06.02 Shortness of breath; Z79.1 Long term (current) use of non-steroidal anti-inflammatories (NSAID); Z79.2 Long term (current) use of antibiotics; Z79.899 Other long term (current) drug therapy; Z98.890 Other specified postprocedural states; Z86.19 Personal history of other infectious and parasitic diseases; Z90.81 Acquired absence of spleen; Z85.05 Personal history of malignant neoplasm of liver
CPT/HCPCS: 36415; 80053; 85025; 93005; 96372; 99284; J1885